=== PATIENT | female | born 1995 | race Caucasian/White ===

== ENCOUNTER 2017-04-17 12:56 | Emergency (ER) | payer OTHER ==
[~2017-04-17] VITALS: Ht 149.9 cm; Wt 75.4 kg
[2017-04-17 13:00] VITALS: TEMP 37.7; Ht 149.9 cm; Wt 75.4 kg
--- NOTE | 2017-04-17 13:17 | EMERGENCY ROOM VISIT NOTE ---
History Report prepared by Kevin: Marisol Emanuel Under the Supervision of: Dr. Karen Capps M.D. First contact with patient: 13:06 Chief Complaint: SORETHROAT Stated Complaint: RIGHT SIDE OF THROAT SORE;FEVER History of Present Illness The patient is a 22 year old female who presents to the Emergency Room with complaints of a constant sore throat beginning 3 days prior to arrival. She notes that the right side is worse than the left. The patient also notes a fever. She reports last night a temperature of 102 and this morning one of 99. The patient denies anyone at home being sick. She denies any other symptoms at this time. 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 Review of Systems See HPI for pertinent positives & negatives. A total of 10 systems reviewed and were otherwise negative. Past Medical & Surgical Medical Problems: (1) Factor V Leiden Family History Cancer Diabetes mellitus Heart disease Social History Smoking Status: Never Smoker Marital Status: Housing Status: lives with family Occupation Status: employed Current/Historical Medications Scheduled Amoxicillin (Amoxil), 500 MG PO TID Metformin Hcl (Glucophage), 500 MG PO BID Allergies Coded Allergies: No Known Allergies (Unverified , 04/17/17) Physical Exam Vital Signs Date Time Temp Pulse Resp B/P (MAP) Pulse Ox O2 Delivery O2 Flow Rate FiO2 04/17/17 14:09 94 18 116/80 97 04/17/17 13:05 97 Room Air 04/17/17 13:00 37.7 97 20 115/76 97 Room Air Physical Exam Vital signs reviewed. General: Well-appearing female, in no significant distress. Mildly febrile. HEENT: No scleral icterus, PERRLA, neck supple. Atraumatic. Tonsillars with exudate. Positive shotty cervical lymphadenopathy Cardiovascular: Regular rate and rhythm, no extra sounds. Pulmonary: Clear to auscultation bilaterally, normal work of breathing. Abdomen: Soft, nontender, nondistended, positive bowel sounds. Musculoskeletal: Atraumatic, no peripheral edema. Neurologic: Patient awake alert and oriented x 3, full strength in all 4 extremities. Cranial nerves 2 through 12 grossly intact. Skin: Warm, dry, no rash Medical Decision & Procedures Laboratory Results Laboratory results per my review. Medications Administered Medications (Trade) Dose Ordered Sig/Timbo Route Start Time Stop Time Status Last Admin Dose Admin Amoxicillin (Amoxil Cap) 500 mg NOW STAT PO 04/17/17 13:46 04/17/17 13:55 DC 04/17/17 14:09 500 MG ED Course 1310: Past medical records reviewed. The patient was evaluated in room C11. A complete history and physical examination was performed. 1346: Amoxil Cap 500 mg PO. 1359: Upon reevaluation, the patient appeared to have improvement of her symptoms. I discussed findings with her. She verbalized agreement of the treatment plan. She was discharged home. Medical Decision Differential diagnosis: Etiologies such as viral syndrome, tonsillitis, streptococcal pharyngitis, mononucleosis, peritonsillar abscess, retropharyngeal abscess, otitis, pneumonia , influenza, as well as others were entertained. Medication Reconciliation: I attest that I have personally reviewed the patient' s current medication list. Blood Pressure Screening: Patient was found to have normal blood pressure on screening and does not require follow-up. This patient was evaluated and appeared to be in no significant distress. Physical examination reveals tonsillar hypertrophy with some exudates bilaterally. Rapid strep swab is negative. The patient had some intermittent fevers over the last 2 days with a sore throat and exudates, she will be placed on amoxicillin 500 mg 3 times a day for 10 days. Due to her history of liver issues, she would be asked to use ibuprofen 600 mg every 6 hours as needed for pain or fever. She will follow-up with her primary care physician this week and return to the ER for worsening of symptoms or any medical concerns. Impression Primary Impression: Tonsillitis with exudate Scribe Attestation The scribe's documentation has been prepared under my direction and personally reviewed by me in its entirety. I confirm that the note above accurately reflects all work, treatment, procedures, and medical decision making performed by me. Departure Information Dispostion Home / Self-Care Prescriptions Amoxicillin (AMOXIL) 500 Mg Cap 500 MG PO TID, #30 CAP Prov: Karen Capps M.D. 04/17/17 Referrals No Doctor, Assigned (PCP) Forms HOME CARE DOCUMENTATION FORM, IMPORTANT VISIT INFORMATION Patient Instructions My [facility] Additional Instructions Diagnosis: Tonsillitis with exudate Amoxicillin 500 mg three times daily for 10 days. Ibuprofen 600 mg every 6 hours as needed for pain/fever. Drink plenty of fluids. Follow up with your doctor this week for reevaluation. Return to the ED for worsening of symptoms or any medical concerns.
[2017-04-17] MEDS ORDERED: GLC/500 PO (13:25)
[2017-04-17] MEDS ORDERED: AMOXICILLIN 250 MG CAP PO STA (13:46)
[2017-04-17] MEDS ORDERED: AMOX500C3 PO (14:00)
[2017-04-17 14:09] VITALS: BP 116/80; PULSE 94; O2SAT 97
== END 2017-04-17 14:12 | disposition home or self-care (01) ==
LOC: C.EDB 12:58 → C.EDC 14:12
DX: J03.90 Acute tonsillitis, unspecified (principal); D68.51 Activated protein C resistance; Z79.84 Long term (current) use of oral hypoglycemic drugs; Z83.3 Family history of diabetes mellitus

== ENCOUNTER 2017-06-09 23:09 | Emergency (ER) | payer OTHER ==
[~2017-06-09] VITALS: Ht 149.9 cm; Wt 73.4 kg
[~2017-06-09 23:09] MED LIST: GLC/500 PO
[2017-06-09 23:12] VITALS: TEMP 36.8; Ht 149.9 cm; Wt 73.4 kg
[2017-06-09] MEDS ORDERED: PRENTAB65 PO (23:31)
--- NOTE | 2017-06-09 23:39 | EMERGENCY ROOM VISIT NOTE ---
History Report prepared by Kevin: Linsey Bowens Under the Supervision of: Dr. Albert Parson M.D. First contact with patient: 23:15 Chief Complaint: SWELLING TO EXTREMITY Stated Complaint: BOTTOM OF RT FOOT IS SWOLLEN,POSSIBLE BLOOD CLOT History of Present Illness The patient is a 22 year old female who presents to the Emergency Room with complaints of an episode of right foot swelling starting two days ago. The patient states that the swelling is at the bottom of her foot. She reports that she has a history of Factor V. She states that she sat on her foot for four hours while playing on the computer. The patient notes that the pain is worse with walking. She complains of intermittent leg pain. The patient denies shortness of breath. The patient notes that she is and this is her second . Source of History: patient Onset: two days ago Position: foot (right) Quality: other (swelling) Timing: other (episode) Modifying Factors (Worsening): other (walking) Associated Symptoms: No SOB Note: The patient complains of intermittent leg pain. Review of Systems See HPI for pertinent positives & negatives. A total of 6 systems reviewed and were otherwise negative. Past Medical & Surgical Medical Problems: (1) Factor V Leiden (2) Prediabetes Family History Cancer Diabetes mellitus Heart disease Social History Smoking Status: Never Smoker Marital Status: Housing Status: lives with family Occupation Status: employed Current/Historical Medications Scheduled Metformin Hcl (Glucophage), 500 MG PO BID Multivit-Min W/Fe-Fa (), 1 TAB PO DAILY Allergies Coded Allergies: No Known Allergies (Unverified , 06/09/17) Physical Exam Vital Signs Date Time Temp Pulse Resp B/P (MAP) Pulse Ox O2 Delivery O2 Flow Rate FiO2 06/10/17 01:56 81 18 123/78 98 06/10/17 01:12 80 18 121/77 97 Room Air 06/09/17 23:12 36.8 86 16 142/90 98 Room Air Physical Exam GENERAL: Patient is well appearing and in no acute distress. HEENT: No acute trauma, normocephalic atraumatic, mucous membranes moist, no nasal congestion, no scleral icterus. NECK: No stridor, no adenopathy, no meningismus, trachea is midline. LUNGS: No dyspnea. Clear to auscultation and equal bilaterally. No wheeze, no rhonchi. HEART: Regular rate and rhythm. No murmurs, rubs, gallops appreciated. ABDOMEN: Soft, nontender, bowel sounds positive, no masses appreciated, no peritonitis. EXTREMITIES: Normal motion all extremities, no cyanosis, no edema. NEUROLOGIC: Alert and oriented, no acute motor or sensory deficits, no focal weakness, cranial nerves grossly intact. SKIN: No rash, no jaundice, no diaphoresis. Medical Decision & Procedures ER Provider Diagnostic Interpretation: Radiology results and stated below per my review and radiologist interpretation: Lower Extremity US: No evidence of deep vein thrombosis. ED Course 2317: The patient was evaluated in room B2. A complete history and physical exam was performed. 0147: Reevaluated the patient. She is feeling good. I discussed the US findings and symptoms to monitor for at home. Discussed results and discharge instructions: She verbalized understanding and agreement. The patient is ready for discharge. Medical Decision Differential: DVT, Rhabdo, Arterial Occlusion, Infectious, Trauma, amongst other pathologies entertained. 22 yr old female with bottom right foot swelling which I feel is likely just from sitting on foot awkwardly for 4 hours. No evidence compartment syndrome nor rhabdo. It does not appear infected nor does it have fluctuance. Of other concern is periodic calf pain in setting of Factor V mutation. US leg done which is fortunately negative. Suspect calf discomfort with . Reviewed symptoms requiring RTED. Stable and comfortable with plan. Impression Primary Impression: Foot swelling Scribe Attestation The scribe's documentation has been prepared under my direction and personally reviewed by me in its entirety. I confirm that the note above accurately reflects all work, treatment, procedures, and medical decision making performed by me. Departure Information Dispostion Home / Self-Care Referrals No Doctor, Assigned (PCP) Forms HOME CARE DOCUMENTATION FORM, IMPORTANT VISIT INFORMATION, WORK / SCHOOL INSTRUCTIONS Patient Instructions My [facility] [employer] Additional Instructions Keep foot elevated, use Tylenol as needed for discomfort. Return if increased swelling, pain, redness, fevers or other concerns. The Ultrasound was negative for any blood clot, but if swelling increases, especially in calf this may need to be repeated. Return immediately or call 911 is shortness of breath, chest pain or passing out.
[2017-06-10 01:56] VITALS: BP 123/78; PULSE 81; O2SAT 98
--- NOTE | 2017-06-10 07:12 | DIAGNOSTIC IMAGING REPORT ---
RIGHT LOWER EXTREMITY VENOUS DOPPLER CLINICAL HISTORY: Right foot swelling, calf discomfort, , factor V COMPARISON STUDY: No previous studies for comparison. TECHNIQUE: Sonography of the deep venous system of the right lower extremity was performed. Compression and augmentation were evaluated. FINDINGS: The right common femoral, superficial femoral and popliteal veins were compressible. Augmentation was normal. Flow was shown within the deep calf vessels. IMPRESSION: No evidence of deep venous thrombus within the right lower extremity. Electronically signed by: Vern Wade M.D. 06/10/2017 7:10 AM Dictated Date/Time: 06/10/2017 7:10 AM
== END 2017-06-10 01:56 | disposition home or self-care (01) ==
LOC: C.EDB 23:10
DX: M79.89 Other specified soft tissue disorders (principal); O26.899 Other specified pregnancy related conditions, unspecified trimester; Z3A.00 Weeks of gestation of pregnancy not specified; O99.119 Other diseases of the blood and blood-forming organs and certain disorders involving the immune mechanism complicating pregnancy, unspecified trimester; D68.51 Activated protein C resistance; Z80.9 Family history of malignant neoplasm, unspecified; Z83.3 Family history of diabetes mellitus; Z82.49 Family history of ischemic heart disease and other diseases of the circulatory system; Z79.899 Other long term (current) drug therapy